=== PATIENT | male | born 1995 | race Caucasian/White ===

== ENCOUNTER 2023-03-14 13:09 | Emergency (ER) | payer BC, OTHER ==
[2023-03-14 13:59] VITALS: BP 118/93; PULSE 94; O2SAT 98
--- NOTE | 2023-03-14 15:13 | ERPHSYRPT ---
- History of Present Illness Time Seen by Provider: 03/14/23 13:34 Source: patient Exam Limitations: no limitations Patient Subjective Stated Complaint: C/O right rib pain/injury. He states he was wrestling around with a friend yesterday and his friend landed wrong on his right ribs Triage Nursing Assessment: Patient ambulated back to ER. He is wearing a wet suit vest under his t-shirt, he states for compression for the pain. Patient assisted to remove this and place on a gown. No bruising or skin alterations noted to ribs. Patient shows s/s of pain when taking a deep breath. No cough. No SOB. Physician History: 27 years old presented in the ER with chief complaint of right lower anterolateral rib pain started yesterday after he was wrestling around with his friend who fell wrong on him. Mild to moderate dull aching to sharp pain with deep breathing, movement and palpation. No difficulty breathing. No abdominal pain nausea vomiting Timing/Duration: yesterday, sudden, worse Severity: mild, moderate Modifying Factors: Worsens With: movement Associated Symptoms: chest pain, No shortness of breath Allergies/Adverse Reactions: No Known Drug Allergies Allergy (Verified 03/14/23 13:50) Hx Tetanus, Diphtheria Vaccination/Date Given: Yes Hx Influenza Vaccination/Date Given: Yes Hx Pneumococcal Vaccination/Date Given: Yes Immunizations Up to Date: Yes Travel Risk - International Travel Have you traveled outside of the country in past 3 weeks: No - Coronavirus Screening Are you exhibiting any of the following symptoms?: No Close contact with a COVID-19 positive Pt in past 14-21 Days: No - Vaccine Status Have you recieved a Covid-19 vaccination: No - Review of Systems Constitutional: No Symptoms Ears, Nose, & Throat: No Symptoms Respiratory: No Symptoms Cardiac: Chest Pain Abdominal/Gastrointestinal: No Symptoms Genitourinary Symptoms: No Symptoms Musculoskeletal: No Symptoms Skin: No Symptoms Neurological: No Symptoms Endocrine: No Symptoms Hematologic/Lymphatic: No Symptoms - Past Medical History Pertinent Past Medical History: Yes Musculoskeletal History: Fractures - Past Surgical History Past Surgical History: Yes Gastrointestinal: Appendectomy Musculoskeletal: Orthopedic Surgery Other Surgical History: right arm surgery - Social History Smoking Status: Never smoker Exposure to second hand smoke: No Alcohol Use: occasional Drug Use: none Patient Lives Alone: No - Nursing Vital Signs Nursing Vital Signs: Initial Vital Signs Temperature 98 F 07/16/23 13:51 Pulse Rate 94 H 03/14/23 13:51 Respiratory Rate 18 03/14/23 13:51 Blood Pressure 118/93 03/14/23 13:51 O2 Sat by Pulse Oximetry 98 03/14/23 13:51 Pain Scale Pain Intensity 8 - Physical Exam General Appearance: no apparent distress, alert Eye Exam: PERRL/EOMI Ears, Nose, Throat Exam: normal ENT inspection Neck Exam: normal inspection, non-tender, supple, full range of motion Respiratory Exam: normal breath sounds, chest tenderness (Right lower anterior chest wall with no bruising, no step in deformity. Normal flail chest. Mild tenderness with no crepitus. No right upper quadrant tenderness at all), lungs clear Cardiovascular Exam: regular rate/rhythm, normal heart sounds Gastrointestinal/Abdomen Exam: soft, normal bowel sounds, No tenderness Extremity Exam: normal inspection Neurologic Exam: alert, oriented x 3, cooperative Skin Exam: normal color SpO2 Interpretation: normal SpO2: 98 O2 Delivery: Room Air Ordered Tests: Active Orders 24 hr Category Date Time Status RIBS UNILATERAL Stat Exams 03/14/23 14:00 Completed - Progress Progress: improved, re-examined Progress Note: 03/14/23 15:11 69-year-old female with history of coronary artery disease status post stenting, diabetes mellitus poorly controlled presented in the ER with chief complaint of itching. Patient reports she woke up this morning with itching all over more in the left upper extremity and left lower leg. Denies any new medications/detergents/soap/shampoo or lotion use. Does report having similar symptoms in the past. Denies any difficulty breathing, palpitation or throat closing sensations. Is given Toradol for symptomatic relief patient is not in any distress. X-rays right rib series negative for acute fracture rib. No pneumothorax reviewed by me, official report is pending I believe patient has rib contusion, recommended Tylenol ibuprofen and deep breathing exercises and outpatient follow-up. Discussed signs symptoms of worsening needing return to ER which she seems understanding. Stable for discharge. Counseled pt/family regarding: diagnosis, need for follow-up, rad results Medical Desision Making - Diagnostic Testing Diagnostic test were ordered, analyzed, and reviewed by me: Yes Radiological Interpretation: Interpreted by me, Reviewed by me - Departure Departure Disposition: Home Clinical Impression: Contusion of rib on right side Condition: Stable Critical Care Time: No Referrals: DOCTOR,NO FAMILY [Primary Care Provider] - Follow up/PCP as directed TRACE DAVIS MD [ACTIVE STAFF] - Follow up with PCP 1 day Instructions: Bruised Rib Additional Instructions: Take Tylenol/ibuprofen as needed. Follow-up with primary care for reevaluation. Do deep breathing exercises. Return to ER for intractable pain, difficulty breathing etc. Prescriptions: Ibuprofen 600 mg PO Q6HPRN PRN 10 Days #20 tablet PRN Reason: Pain
--- NOTE | 2023-03-14 19:32 | XRAY ---
Indication: Pain following injury. Comparison: None 2 view right ribs demonstrates incompletely visualized lumbar levoscoliosis. No other bony, articular, or soft tissue abnormalities.
== END 2023-03-14 15:30 | disposition home or self-care (01) ==
LOC: ED 13:09
DX: S20.211A Contusion of right front wall of thorax, initial encounter (principal); W50.0XXA Accidental hit or strike by another person, initial encounter; Y93.83 Activity, rough housing and horseplay; Z28.310 Unvaccinated for COVID-19
CPT/HCPCS: 71100; 99282

== ENCOUNTER 2024-12-01 20:48 | Emergency (ER) | payer BC ==
--- NOTE | 2024-12-01 20:52 | ERPHSYRPT ---
- History of Present Illness Time Seen by Provider: 12/01/24 20:52 Source: patient Exam Limitations: no limitations Physician History: This is a right handed 28-year-old white male patient who presents to the emergency department accompanied by his mother with the complaint of postoperative wound infection of his right forearm. 2 days ago, the patient underwent an excision of a right forearm subcutaneous mass/cyst. The pathology is unknown at this time as it was sent in 2 days ago and we do not have the pathology evaluation yet. It was performed at another facility. The patient was not given any antibiotics postoperatively per the patient. He went to a clinic outpatient and was given a shot of Rocephin and a prescription for Toradol and doxycycline. He has not taken any doxycycline at this time. There is cellulitis present and there was a marking around it with a black pen. The incision/excision site has nylon sutures present and it is raised and warm. Timing/Duration: day(s) (2), worse Quality: painful Severity: mild Location: extremities (Dorsal aspect right forearm) Possible Causes: other (Postoperative swelling) Associated Symptoms: swelling/mass/lumps (Postoperative right forearm swelling), No fever Allergies/Adverse Reactions: No Known Drug Allergies Allergy (Verified 12/01/24 20:53) Home Medications: Doxycycline Hyclate 100 mg [Vibramycin 100 MG] 100 mg PO BID 12/01/24 [History] Ketorolac Trometh 10 mg Tab [TORAdol 10 MG TABLET] 10 mg PO Q6HPRN PRN 12/01/24 [History] Hx Tetanus, Diphtheria Vaccination/Date Given: Yes Hx Influenza Vaccination/Date Given: Yes Hx Pneumococcal Vaccination/Date Given: Yes Travel Risk - International Travel Have you traveled outside of the country in past 3 weeks: No - Emerging Infectious Disease Are you exhibiting symptoms associated with any current EIDs: No - Review of Systems Constitutional: No Symptoms Eyes: No Symptoms Ears, Nose, & Throat: No Symptoms Respiratory: No Symptoms Cardiac: No Symptoms Abdominal/Gastrointestinal: No Symptoms Genitourinary Symptoms: No Symptoms Musculoskeletal: No Symptoms Skin: Cellulitis (Around the postoperative site), Other (Operative right forearm swelling) Neurological: No Symptoms Psychological: No Symptoms Endocrine: No Symptoms Hematologic/Lymphatic: No Symptoms Immunological/Allergic: No Symptoms All Other Systems: Reviewed and Negative - Past Medical History Pertinent Past Medical History: Yes Musculoskeletal History: Fractures - Past Surgical History Past Surgical History: Yes Gastrointestinal: Appendectomy Musculoskeletal: Orthopedic Surgery Other Surgical History: right arm surgery - Social History Smoking Status: Never smoker Exposure to second hand smoke: No Alcohol Use: occasional Drug Use: none Patient Lives Alone: No - Nursing Vital Signs Nursing Vital Signs: Initial Vital Signs Temperature 97.8 F 12/01/24 20:54 Pulse Rate 129 H 12/01/24 20:54 Respiratory Rate 18 12/01/24 20:54 Blood Pressure 126/89 12/01/24 20:54 O2 Sat by Pulse Oximetry 98 12/01/24 20:54 Pain Scale Pain Intensity 6 - Physical Exam General Appearance: no apparent distress, alert, anxiety Eye Exam: PERRL/EOMI, eyes nml inspection Ears, Nose, Throat Exam: normal ENT inspection, moist mucous membranes Neck Exam: normal inspection, non-tender, supple, full range of motion Respiratory Exam: airway intact, No chest tenderness, No respiratory distress Cardiovascular Exam: tachycardia Gastrointestinal/Abdomen Exam: No tenderness Rectal Exam: not done Back Exam: normal inspection, normal range of motion, No CVA tenderness, No vertebral tenderness Extremity Exam: normal range of motion, pelvis stable, tenderness (Postoperative right forearm dorsal aspect swelling with Jareth postoperative site cellulitis) Neurologic Exam: alert, oriented x 3, cooperative, contour grinder II-XII nml as tested, normal mood/affect, nml cerebellar function, nml station & gait, sensation nml Skin Exam: other (See above extremity section) Lymphatic Exam: No adenopathy SpO2 Interpretation: normal O2 Delivery: Room Air Procedures - Incision and Drainage Time of Procedure: 21:10 I & D Procedure: betadine prep, culture obtained Results: small amount pus (Associated with photo moderate to large amount of old hematoma that was expressed out after removal of a single mid incision line suture) - Course Nursing assessment & vital signs reviewed: Yes - Progress Progress: improved Progress Note: 12/01/24 21:23 My medical decision making of the assignment of low complexity to this patient's medical issue today is based on review of the patient's past medical history, review the patient's medication list, reviewed patient drug allergy list, history present illness and physical findings on examination. The workup includes incision and drainage of this site by opening up the midportion of the incision site by removal of single, central nylon stitch. Culture obtained from the fluid expressed out. Differential diagnosis includes serosanguineous fluid, infected hematoma, abscess/pus, cellulitis right forearm Counseled pt/family regarding: diagnosis, need for follow-up Medical Desision Making - Independent Historian Additional History obtained from: Mother - Diagnostic Testing Diagnostic test were ordered, analyzed, and reviewed by me: No - Risk of complications Low Risk: Low risk of morbidity from additional dx testing or treatment - Departure Departure Disposition: Home Clinical Impression: Right forearm cellulitis, Infected hematoma following procedure Condition: Stable Critical Care Time: No Referrals: DOCTOR,NO FAMILY [Primary Care Provider] - Follow up/PCP as directed Additional Instructions: Keep the current bandage in place until tomorrow morning, 12/02/2024. At that time remove the pressure dressing and allow soapy water to flow over the site. Blot dry use a manager hair. Do not apply any lotions ointments or creams to the site. Cover with a nonstick gauze. Return to the emergency department tomorrow for reassessment. Take your doxycycline dose tonight. Continue your antibiotics tomorrow morning as prescribed. Use Tylenol for pain control. Hold your Toradol and hold ibuprofen as these products may increase chance of bleeding from wound site/bed
[2024-12-01 21:08] VITALS: TEMP 97.8
[2024-12-01 21:32] VITALS: BP 129/83; PULSE 103; RESP 22; O2SAT 97
== END 2024-12-01 21:37 | disposition home or self-care (01) ==
LOC: ED 20:48
DX: L76.31 Postprocedural hematoma of skin and subcutaneous tissue following a dermatologic procedure (principal); L03.113 Cellulitis of right upper limb; Z79.899 Other long term (current) drug therapy
CPT/HCPCS: 87070; 87077; 87186; 99282